=== PATIENT | female | born 1985 | race Caucasian/White ===

== ENCOUNTER 2017-06-10 18:35 | Observation (INO) | payer OTHER ==
[2014-11-22 20:19] VITALS: BP 167/79
[2017-06-10] MEDS ORDERED: IV RINGERS,LACTATED 1000ML 1,000 ML IV SCH (18:53)
[2017-06-10 19:18] LABS: POS OBC AMNIO POS
[2017-06-10 19:19] LABS: NEG OBC AMNIO NEG
== END 2017-06-10 21:36 | disposition home or self-care (01) ==
LOC: 3 SO LND 18:35
PROVIDERS: ADMIT Obstetrics & Gynecology; ATTEND Obstetrics & Gynecology
DX: O42.912 Preterm premature rupture of membranes, unspecified as to length of time between rupture and onset of labor, second trimester (principal); Z3A.27 27 weeks gestation of pregnancy
CPT/HCPCS: 36415; 84112; G0378; G0379